=== PATIENT | female | born 1980 | race Hispanic/Latino ===

== ENCOUNTER 2021-08-01 15:19 | Emergency (ER) | payer BC ==
[2021-08-02 12:01] LABS: SARS-CoV-2 PCR by NAA Not Detected (NotDetected)
== END 2021-08-01 17:10 | disposition home or self-care (01) ==
LOC: NAV ERS 15:19
DX: R51.9 Headache, unspecified (principal); R19.7 Diarrhea, unspecified; Z20.822 Contact with and (suspected) exposure to COVID-19
CPT/HCPCS: 71046; 87804; U0003; U0005

== ENCOUNTER 2023-06-10 20:59 | Emergency (ER) | payer BC ==
[2023-06-10] MEDS ORDERED: Tetracaine 0.5% PF 4 ML BOT ONE (21:40)
[2023-06-10] MEDS ORDERED: Fluorescein Opthalmic Strip ONE (21:40)
== END 2023-06-10 22:18 | disposition home or self-care (01) ==
LOC: NAV ERS 20:59
DX: H18.822 Corneal disorder due to contact lens, left eye (principal)
CPT/HCPCS: 99283

== ENCOUNTER 2024-03-22 12:13 | Emergency (ER) | payer SELFPAY ==
[2024-03-22] MEDS ORDERED: methylPREDNISolone Sod Succ/PF 125 MG/2 ML VIAL ONE (12:45)
== END 2024-03-22 13:03 | disposition home or self-care (01) ==
LOC: NAV ERS 12:13
DX: M54.16 Radiculopathy, lumbar region (principal)
CPT/HCPCS: 96372; 99282; J2919

== ENCOUNTER 2025-05-30 12:34 | Emergency (ER) | payer BC, SELFPAY ==
[2025-05-30 13:51] LABS: Hematocrit 28.8 % (36.0-47.0); Hemoglobin 8.1 g/dL (12.0-16.0); Mean Corpuscular Hemoglobin 20.2 pg (27.0-31.0); Mean Corpuscular Volume 72.1 fl (78.0-98.0); Platelet Count 253 10x3/uL (130-400); Red Blood Cell (RBC) Count 3.99 mill/uL (4.20-5.40); White Blood Cell (WBC) Count 5.0 10x3/uL (4.8-10.8)
[2025-05-30 13:55] LABS: Anion Gap 12 mmol/L (10-20); BUN (Urea Nitrogen) 10 mg/dL (7.0-18.7); Calc. Creatinine Clearance 0 mL/min (70-130); Calcium 8.5 mg/dL (7.8-10.44); Carbon Dioxide 24 mmol/L (22-29); Chloride 106 mmol/L (98-107); Glucose 91 mg/dL (70-105); Magnesium 2.0 mg/dL (1.6-2.6); Potassium 3.2 mmol/L (3.5-5.1); Sodium 139 mmol/L (136-145)
[2025-05-30 14:05] LABS: MDiff Complete? YES
[2025-05-30 14:38] LABS: Anisocytosis SLIGHT = 6-15 cells (100X) (0-5/hpf); Microcytosis SLIGHT = 6-15 cells (100X) (0-5/hpf); Poikilocytosis SLIGHT = 6-15 cells (100X) (0-5/hpf)
[2025-05-30 14:39] LABS: Ovalocytes SLIGHT = 2-5 cells (100X) (0-1/hpf)
[2025-05-30] MEDS ORDERED: Potassium Bicarbonate/Cit Ac 20 MEQ TAB ONE (14:54)
== END 2025-05-30 15:05 | disposition home or self-care (01) ==
LOC: NAV ERS 12:34
DX: D50.9 Iron deficiency anemia, unspecified (principal); E87.6 Hypokalemia
CPT/HCPCS: 36415; 80048; 83735; 84443; 85025; 99284